=== PATIENT | male | born 1945 | race Caucasian/White ===

== ENCOUNTER 2016-10-12 10:07 | Emergency (ER) | payer SELFPAY ==
[~2016-10-12] VITALS: Ht 177.8 cm; Wt 78.0 kg
[~2016-10-12 10:07] MED LIST: CLOP75 PO; HYDR12.56 PO; LISI-360 PO; ZOCO40TA PO
[2016-10-12 10:09] VITALS: BP 168/76; PULSE 66; RESP 17; TEMP 98.2; O2SAT 99
--- NOTE | 2016-10-12 10:10 | PD ---
HPI Chief Complaint: nausea, vomiting Time Seen by Provider: 10:10 Travel History International Travel<30 days: No Contact w/Intl Traveler<30days: No Traveled to known affect area: No History of Present Illness HPI 70-year-old male came to the emergency room brought by EMS with history of nausea and vomiting since 12:30 this morning. Patient says that he vomited 6-7 times nonbilious. Yesterday he had some loose stools. His last vomit was at 5 AM. He took some baby aspirin this morning with water and has kept it down. Currently he says he just feels weak and not all over. No history of pain. No history of chest pain. His vital signs were stable. [facility] Past Medical History Narrative Medical List of his past medical, surgical, social and family history is reviewed from the nursing note. Hx Anticoagulant Therapy: No Cancer: No Cardiovascular Problems: No High Cholesterol: Yes Chemotherapy: No Cerebrovascular Accident: No Diabetes: No Diminished Hearing: No Deep Vein Thrombosis: Yes Genitourinary: No Hypertension: Yes Musculoskeletal: No Neurologic: No Reproductive: No Respiratory: No Immunizations Current: Yes Past Surgical History Eye Surgery: Yes (LEFT EYE CATARACT SURGURY) Tonsillectomy: Yes Other Surgery: Yes (BRAIN SURGERY R/T INJURY) Social History Alcohol Use: Yes (BEER- 2 CANS A DAY) Tobacco Use: No (QUIT IN 08/05 PPD) Substance Use: No Allergies-Medications (Allergen,Severity, Reaction): Coded Allergies: No Known Allergies (Unverified , 10/12/16) Comments No known drug allergies. Reported Meds & Prescriptions Reported Meds & Active Scripts Active Reported Atorvastatin (Atorvastatin Calcium) 80 Mg Tab 80 Mg PO HS Lisinopril-Hctz 10-12.5 Mg Tab 1 Tab PO DAILY Aspirin 81 Mg Tabdr 81 Mg PO DAILY Narrative Medication List of his home medications are reviewed from the nursing note. Review of Systems Except as stated in HPI: all other systems reviewed are Neg Physical Exam Narrative GENERAL: Awake, alert, anxious, mild distress SKIN: Warm and dry. HEAD: Atraumatic. Normocephalic. EYES: Pupils equal and round. No scleral icterus. No injection or drainage. ENT: No nasal bleeding or discharge. Dry mucous membrane NECK: Trachea midline. No JVD. CARDIOVASCULAR: Regular rate and rhythm. No murmur appreciated. RESPIRATORY: No accessory muscle use. Clear to auscultation. Breath sounds equal bilaterally. GASTROINTESTINAL: Abdomen soft, non-tender, nondistended. Hepatic and splenic margins not palpable. MUSCULOSKELETAL: No obvious deformities. No clubbing. No cyanosis. No edema. NEUROLOGICAL: Awake and alert. No obvious cranial nerve deficits. Motor grossly within normal limits. Normal speech. PSYCHIATRIC: Appropriate mood and affect; insight and judgment normal. Data Data Last Documented VS Vital Signs Date Time Temp Pulse Resp B/P Pulse Ox O2 Delivery O2 Flow Rate FiO2 10/12/16 15:30 97.8 78 17 146/81 99 10/12/16 13:30 Room Air Orders Electrocardiogram (10/12/16 10:10) Basic Metabolic Panel (Bmp) (10/12/16 10:10) Ckmb (Isoenzyme) Profile (10/12/16 10:10) Complete Blood Count With Diff (10/12/16 10:10) Magnesium (Mg) (10/12/16 10:10) Prothrombin Time / Inr (Pt) (10/12/16 10:10) Act Partial Throm Time (Ptt) (10/12/16 10:10) Troponin I (10/12/16 10:10) Lipase (10/12/16 10:10) Chest, Single Ap (10/12/16 10:10) Ecg Monitoring (10/12/16 10:10) Bilateral Bp Monitoring (10/12/16 10:10) Iv Access Insert/Monitor (10/12/16 10:10) Oximetry (10/12/16 10:10) Oxygen Administration (10/12/16 10:10) Sodium Chloride 0.9% Flush (Ns Flush) (10/12/16 10:15) Ondansetron Inj (Zofran Inj) (10/12/16 10:15) Sodium Chlor 0.9% 1000 Ml Inj (Ns 1000 M (10/12/16 10:15) Ct Brain W/O Iv Contrast(Rout) (10/12/16 ) Sodium Chlorid 0.9% 500 Ml Inj (Ns 500 M (10/12/16 12:45) Labs Laboratory Tests Test 10/12/16 10:14 White Blood Count 9.8 TH/MM3 Red Blood Count 4.50 MIL/MM3 Hemoglobin 15.1 GM/DL Hematocrit 42.7 % Mean Corpuscular Volume 94.9 FL Mean Corpuscular Hemoglobin 33.6 PG Mean Corpuscular Hemoglobin 35.4 % Concent Red Cell Distribution Width 12.8 % Platelet Count 208 TH/MM3 Mean Platelet Volume 7.9 FL Neutrophils (%) (Auto) 92.2 % Lymphocytes (%) (Auto) 5.0 % Monocytes (%) (Auto) 2.7 % Eosinophils (%) (Auto) 0.0 % Basophils (%) (Auto) 0.1 % Neutrophils # (Auto) 9.0 TH/MM3 Lymphocytes # (Auto) 0.5 TH/MM3 Monocytes # (Auto) 0.3 TH/MM3 Eosinophils # (Auto) 0.0 TH/MM3 Basophils # (Auto) 0.0 TH/MM3 CBC Comment DIFF FINAL Differential Comment Prothrombin Time 10.5 SEC Prothromb Time International 1.0 RATIO Ratio Activated Partial 23.4 SEC Thromboplast Time Sodium Level 138 MEQ/L Potassium Level 4.2 MEQ/L Chloride Level 102 MEQ/L Carbon Dioxide Level 26.9 MEQ/L Anion Gap 9 MEQ/L Blood Urea Nitrogen 11 MG/DL Creatinine 0.92 MG/DL Estimat Glomerular Filtration 82 ML/MIN Rate Random Glucose 123 MG/DL Calcium Level 9.0 MG/DL Magnesium Level 2.2 MG/DL Total Creatine Kinase 72 U/L Troponin I LESS THAN 0.02 NG/ML Lipase 141 U/L MDM Medical Decision Making Medical Screen Exam Complete: Yes Emergency Medical Condition: Yes Medical Record Reviewed: Yes Interpretation(s) Twelve-lead EKG was reviewed by me. Normal sinus rhythm, normal axis, nonspecific ST-T wave changes. Heart rate of 68 bpm. Differential Diagnosis Dehydration, electrolyte abnormalities, ACS Narrative Course 12:07 PM blood test results are back and within normal limit. Chest x-ray was within normal limit. Patient has not vomited anymore yet. He was given 1 L of IV fluid bolus and Zofran for nausea. I will discharge him at this point. 12:42 PM I was told that the nurse try to ambulate him and patient was feeling very dizzy. I've ordered a head CT. He is not orthostatic. 3:[address] was within normal limits. I will discharge him home. Procedures EKG Prior to Arrival: No Diagnosis Primary Impression: Nausea and vomiting Qualified Code: R11.2 - Non-intractable vomiting with nausea, unspecified vomiting type Additional Impressions: Generalized weakness Dizziness Referrals: Primary Care Physician 2 days Additional Instructions: Please return to the ER if the condition worsens or any other new concerns. Otherwise follow-up with your primary care in couple days. Drink lots of fluid and try to keep herself hydrated. Med/Other Pt SpecificInfo: No Change to Meds Disposition: 01 DISCHARGE HOME Condition: Stable eNda Branch MD Oct 12, 2016 10:10 Neda Branch MD Oct 12, 2016 10:10
[2016-10-12 10:11] VITALS: BP_SYST 148; BP_SYST 168; BP_DIAS 67; BP_DIAS 76; PULSE 70; RESP 17; O2SAT 99
[2016-10-12] MEDS ORDERED: LISI10TA PO (10:13)
[2016-10-12] MEDS ORDERED: ATOR1TAB18 PO (10:13)
[2016-10-12] MEDS ORDERED: ASPI1TAB69 PO (10:13)
[2016-10-12] MEDS ORDERED: LISI10TA3 PO (10:13)
[2016-10-12] MEDS ORDERED: SODIUM CHLOR 0.9% 1000 ML INJ 1,000 ML IV ONE (10:15)
[2016-10-12] MEDS ORDERED: ONDANSETRON HCL 4 MG/2 ML VIAL IV PUSH ONE (10:15)
[2016-10-12 10:26] LABS: BASOPHIL % 0.1 % (0.0-2.0); HEMATOCRIT 42.7 % (39.0-51.0); HEMO FLAGS DIFF FINAL; LYMPHOCYTE # 0.5 TH/MM3 (1.0-4.8); MEAN CELL VOLUME 94.9 FL (80.0-100.0); MEAN CORPUSCULAR HEMOGLOBIN 33.6 PG (27.0-34.0); MEAN CORPUSCULAR HGB CONC 35.4 % (32.0-36.0); MONO % 2.7 % (0.0-8.0); NEUT % 92.2 % (16.0-70.0); PLATELET COUNT 208 TH/MM3 (150-450); RED CELL DISTRIBUTION WIDTH 12.8 % (11.6-17.2); WHITE BLOOD COUNT 9.8 TH/MM3 (4.0-11.0)
--- NOTE | 2016-10-12 10:29 | RADRPT ---
EXAM DATE/TIME: 10/12/2016 10:12 [facility] COMPARISON: No previous studies available for comparison. INDICATIONS : Dizziness and nausea with feeling of "pins and needles" in entire body. MEDICAL HISTORY : Hypertension. SURGICAL HISTORY : None. ENCOUNTER: Initial ACUITY: 2 days PAIN SCORE: 0/10 LOCATION: Bilateral chest FINDINGS: A single view of the chest demonstrates the lungs to be symmetrically aerated without evidence of mas s, infiltrate or effusion. The cardiomediastinal contours are unremarkable. Osseous structures are intact. CONCLUSION: No acute disease. Brady Marcelo MD on October 12, 2016 at 10:26 Board Certified Radiologist. This report was verified electronically.
[2016-10-12 10:33] LABS: APTT (PATIENT) 23.4 SEC (24.3-30.1); PROTHROMBIN TIME - PATIENT 10.5 SEC (9.8-11.6)
[2016-10-12 10:44] LABS: ANION GAP 9 MEQ/L (5-15); BICARBONATE 26.9 MEQ/L (21.0-32.0); BLOOD UREA NITROGEN 11 MG/DL (7-18); CHLORIDE 102 MEQ/L (98-107); GLOMERULAR FILTRATION RATE 82 ML/MIN (>89); MAGNESIUM 2.2 MG/DL (1.5-2.5); POTASSIUM 4.2 MEQ/L (3.5-5.1); SODIUM (NA) 138 MEQ/L (136-145)
[2016-10-12 10:51] LABS: CREATINE KINASE 72 U/L (39-308)
[2016-10-12] MEDS: SODIUM CHLORIDE 0.9% FLUSH 5 ML FLUSH IVF PRN ×2 (11:17→13:46)
[2016-10-12 11:28] VITALS: BP 158/74; PULSE 68; RESP 17; O2SAT 99
[2016-10-12 12:34] VITALS: BP_SYST 147; BP_SYST 150; BP_SYST 164; BP_DIAS 67; BP_DIAS 68; BP_DIAS 78; RESP 17
[2016-10-12] MEDS ORDERED: SODIUM CHLORID 0.9% 500 ML INJ 500 ML IV ONE (12:45)
[2016-10-12 13:30] VITALS: BP 164/75; PULSE 67; RESP 17; TEMP 97.8; O2SAT 99
--- NOTE | 2016-10-12 14:40 | EKG ---
Date Performed: 10/12/2016 Time Performed: 09:46:54 PTAGE: 70 years EKG: Sinus rhythm NONSPECIFIC T-WAVE ABNORMALITY Compared to the previous tracing nonspecific T wave changes are new B ORDERLINE ECG PREVIOUS TRACING : 05/04/1993 08.32 DOCTOR: Reji Vance Interpretating Date/Time 10/12/2016 14:38:48
--- NOTE | 2016-10-12 15:00 | RADRPT ---
EXAM DATE/TIME: 10/12/2016 14:24 [facility] COMPARISON: No previous studies available for comparison. INDICATIONS : Dizziness, nausea and vomiting for two days. RADIATION DOSE: 33.61 CTDIvol (mGy) MEDICAL HISTORY : Stroke. Hypertension. deep vein thrombosis SURGICAL HISTORY : Craniotomy. ENCOUNTER: Initial ACUITY: 1 day PAIN SCALE: 0/10 LOCATION: Bilateral head TECHNIQUE: Multiple contiguous axial images were obtained of the head. Using automated exposure control and adj ustment of the mA and/or kV according to patient size, radiation dose was kept as low as reasonably a chievable to obtain optimal diagnostic quality images. FINDINGS: CEREBRUM: The ventricles are normal for age. There is an area of encephalomalacia at the right medial parietal -occipital region. No evidence of midline shift, mass lesion, hemorrhage or acute infarction. No ext ra-axial fluid collections are seen. POSTERIOR FOSSA: The cerebellum and brainstem are intact. The 4th ventricle is midline. The cerebellopontine angle i s unremarkable. EXTRACRANIAL: The visualized portion of the orbits is intact. SKULL: The patient is status post left parietal craniotomy. CONCLUSION: 1. No acute abnormality is seen. 2. Encephalomalacia right parietal-occipital region. The patient is status post left parietal craniot zhane. Brady Marcelo MD on October 12, 2016 at 14:56 Board Certified Radiologist. This report was verified electronically.
[2016-10-12 15:30] VITALS: BP 146/81; TEMP 97.8
== END 2016-10-12 15:30 | disposition home or self-care (01) ==
LOC: NEPE 10:07
DX: R11.2 Nausea with vomiting, unspecified (principal); R53.1 Weakness; R42 Dizziness and giddiness; E78.00 Pure hypercholesterolemia, unspecified; I10 Essential (primary) hypertension; Z86.718 Personal history of other venous thrombosis and embolism
CPT/HCPCS: 70450; 71010; 80048; 82550; 83690; 83735; 84484; 85025; 85610; 85730; 93005; 96361; 96374; 99285; J2405; J7030; J7040

== ENCOUNTER → 2016-11-29 | Outpatient (CLI) | payer OTHER ==
[~2016-11-29] MED LIST changes: +ASPI1TAB69 PO; +ATOR1TAB18 PO; -CLOP75 PO; -HYDR12.56 PO; -LISI-360 PO; +LISI10TA PO; -ZOCO40TA PO
--- NOTE | 2016-11-29 12:11 | RADRPT ---
EXAM DATE/TIME: 11/29/2016 00:00 [facility] COMPARISON: No previous studies available for comparison. INDICATIONS : Dysphagia. FLUORO TIME: 2.5 minutes IMAGE COUNT: 0 CONTRAST: Dose as prescribed by speech pathologist. MEDICAL HISTORY : Stroke. SURGICAL HISTORY : PEG tube. ENCOUNTER: Initial ACUITY: 2 months PAIN SCORE: 0/10 LOCATION: Esophagus. FINDINGS: A modified barium swallow was performed with speech pathology. Patient was given a variety of liquids to swallow. There is a delayed weak swallowing reflex with vallecular pooling. There was vestibular penetration w ith no isidra aspiration. For a full detailed report, see report by the speech pathologist. CONCLUSION: Abnormal modified barium swallow. Emmett Keys MD on November 29, 2016 at 12:09 Board Certified Radiologist. This report was verified electronically.
== END ==
LOC: HRAD 11:09
PROVIDERS: ATTEND Family Medicine
DX: R13.10 Dysphagia, unspecified (principal)
CPT/HCPCS: 74230; 92611; G8996; G8997; G8998